=== PATIENT | female | born 1945 | race Caucasian/White ===

== ENCOUNTER → 2020-03-29 16:50 | Outpatient (CLI) | payer MEDICARE, OTHER, SELFPAY | PROVIDERS: PCP Internal Medicine; Referring Provider Internal Medicine; Visit Provider Internal Medicine | DX: Z20.828 Contact with and (suspected) exposure to other viral communicable diseases (principal) | CPT/HCPCS: 87635; C9803; U0003 ==

== ENCOUNTER 2023-10-28 10:37 | Emergency (ER) | payer MEDICARE, OTHER, SELFPAY ==
[2023-10-28 10:39] VITALS: BP 120/53; PULSE 54; RESP 16; TEMP 35.2; O2SAT 96; BMI 39.0
--- NOTE | 2023-10-28 11:07 | EKG12_ITS ---
Test Reason : Blood Pressure : / mmHG Vent. Rate : 053 BPM Atrial Rate : 053 BPM P-R Int : 246 ms QRS Dur : 140 ms QT Int : 510 ms P-R-T Axes : 058 268 078 degrees QTc Int : 478 ms Sinus bradycardia with 1st degree A-V block Right bundle branch block Septal infarct , age undetermined Abnormal ECG Confirmed by Monster Díaz ([id number]), index editor QI FINE ([id number]) on 10/29/2023 10:19:23 AM Referred By: Confirmed By:Monster Díaz
--- NOTE | 2023-10-28 11:08 | EDS_ITS ---
HPI History of Present Illness Chief Complaint: Dizziness Informant: patient and spouse/S.O. Narrative Narrative: 78-year-old female presenting to the emergency room with dizziness and reported low blood pressure. Patient seems exhausted to have to tell me the story of why she is here as she is reportedly already told just a couple times this morning. She states that she went to her doctor's office for follow-up from hospitalization. She states that she has been having dizziness (when asked to describe dizziness she states lightheadedness and dizziness stuff like that). When she went to the nurse practitioner today she had hypotension into the 80s and ambulance was called who brought her to the emergency department. She states that she was recently hospitalized at [facility] for heart attack like symptoms. [facility] Medical History (Updated 10/28/23 @ 13:[address] Alexandro Fitzgerald DO) Chronic idiopathic thrombocytopenia Obstructive sleep apnea COPD (chronic obstructive pulmonary disease) Diabetes SVT (supraventricular tachycardia) Hyperlipidemia Hypertension CAD (coronary artery disease) Allergy/AdvReac Type Severity Reaction Status Date / Time cefuroxime Allergy Mild Itching Verified 10/28/23 10:50 clotrimazole Allergy Mild Itching Verified 10/28/23 10:50 codeine Allergy Mild Vomiting Verified 10/28/23 10:50 erythromycin base Allergy Mild SOB Verified 10/28/23 10:50 insulin aspart (From Novolog Allergy Mild Rash Verified 10/28/23 10:50 U-100 Insulin aspart) insulin glargine (From Allergy Mild NEEDS Verified 10/28/23 10:50 Lantus U-100 Insulin) FOLLOW-UP mercury (elemental) Allergy Mild Itching Verified 10/28/23 10:50 metformin Allergy Mild NEEDS Verified 10/28/23 10:50 FOLLOW-UP benzethonium chloride (From AdvReac Mild INTOLERANCE Verified 10/28/23 10:50 Lanacane [place]) benzocaine (From Lanacane AdvReac Mild INTOLERANCE Verified 10/28/23 10:50 [place]) Social History Smoking Status: Never smoker ROS ROS ED ROS Narrative Lightheadedness Constitutional Constitutional ED: Denies chills or weight loss Eyes Eyes: Denies change in vision or diplopia ENT ENT ED: Denies ear pain, rhinorrhea or sore throat Cardiovascular Cardiovascular: Denies chest pain, orthopnea, palpitations or racing heartbeat Respiratory/Chest Respiratory/Chest: Denies cough, dyspnea or orthopnea Gastrointestinal Gastrointestinal: Denies abdominal pain, diarrhea, nausea or vomiting Genitourinary Genitourinary ED: Denies dysuria, hematuria or urinary frequency Musculoskeletal Musculoskeletal: Denies arthralgias or myalgias Integumentary Denies abscess or rash Neurologic Neurologic: Reports headache(s) and other Details: Headache frontal left-sided ; Denies weakness Psychiatric Psychiatric: Denies anxiety, depression, suicidal ideation or suicidal thoughts Endocrine Endocrinology: Denies polydipsia, polyphagia or polyuria Allergic/Immunologic Allergic/Immunologic ED: Denies mouth swelling, tongue swelling or urticaria EXAM Physical Exam Const Vital Signs: 10/28/23 10:39 10/28/23 10:45 10/28/23 12:04 Temperature 95.4 F L Temperature Source Oral Pulse Rate 54 L Pulse Rate [Lying] 54 L Pulse Rate [Sitting (for 1 minute prior to obtaining)] 56 L Pulse Rate [Standing (for 1 minute prior to obtaining)] 60 Respiratory Rate 16 Respiratory Effort Normal Non-Labored Respiratory Pattern Normal Blood Pressure 120/53 L Blood Pressure [Lying] 127/50 H Blood Pressure [Sitting (for 1 minute prior to obtaining)] 129/59 H Blood Pressure [Standing (for 1 minute prior to obtaining)] 139/64 H Blood Pressure Mean 75 Blood Pressure Mean [Lying] 75 Blood Pressure Mean [Sitting (for 1 minute prior to obtaining)] 82 Blood Pressure Mean [Standing (for 1 minute prior to obtaining)] 89 Pulse Ox 96 Oxygen Delivery Method Room Air 10/28/23 12:38 Temperature Temperature Source Pulse Rate 57 L Pulse Rate [Lying] Pulse Rate [Sitting (for 1 minute prior to obtaining)] Pulse Rate [Standing (for 1 minute prior to obtaining)] Respiratory Rate 15 Respiratory Effort Respiratory Pattern Blood Pressure 121/53 H Blood Pressure [Lying] Blood Pressure [Sitting (for 1 minute prior to obtaining)] Blood Pressure [Standing (for 1 minute prior to obtaining)] Blood Pressure Mean 75 Blood Pressure Mean [Lying] Blood Pressure Mean [Sitting (for 1 minute prior to obtaining)] Blood Pressure Mean [Standing (for 1 minute prior to obtaining)] Pulse Ox 96 Oxygen Delivery Method Room Air Positive well nourished and well developed General Appearance ED: well developed HEENT Reports normocephalic, head/scalp atraumatic and moist mucous membranes Eyes PERRL and EOMs intact bilaterally Neck no lymphadenopathy, supple and no JVD Resp normal respiratory effort and clear to auscultation bilaterally Cardio regular rate, regular rhythm and no murmurs GI normal to inspection, nondistended, normoactive bowel sounds and non-tender Palpation: soft Back/Spine no CVA tenderness and normal ROM Extremity normal to inspection General Extremety ED: Negative for edema General Extremity: Negative for edema Neuro oriented x3 and CN's II-XII intact bilaterally Sensorium / Orientation: alert Motor Exam: strength 5/5 throughout Psych mental status grossly normal Mood & Affect: Negative for depressed or tearful Skin no rashes or lesions noted and no wounds MDM MDM MDM Narrative Medical decision making narrative: Differential diagnosis includes but not limited to acute coronary syndrome dehydration electrolyte abnormalities stroke PRESS medication reaction cardiac dysrhythmias anemia POTS infections malingering Patient's was able to get some paperwork from her hospitalization. It appears that her troponin was 27 and 23 on 10/23/1967 [id number] on [birth year]23[birth year]1941 and 521. These are troponin T high-sensitivity. Heart is troponin I high-sensitivity and is currently 57. EKG shows a sinus bradycardia with a first-degree AV block with right bundle branch block. Patient had a left heart catheterization August 25, 2023 showed left main with mild luminal irregularities, mild diffuse LAD disease with patent stent in the mid LAD, mild diffuse circumflex disease, 40% proximal circumflex, 60% second obtuse marginal lesion, moderate diffuse RCA with mild to moderate narrowing no interventions were given. 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 Today white count 5.0 hemoglobin of 12 platelet count is 139. My independent interpretation of the chest x-ray is no acute process. Patient has been normotensive on the monitor. Orthostatics are negative. 3 hours that she has been here have not seen any cardiac dysrhythmia or hypotension. Because of her symptomology I obtained a CT of the brain which was also negative for acute findings. I explained to the patient that today's labs look very similar to the ones at [facility] and her objective findings otherwise been negative. Her subjective complaints of lightheadedness and frontal headache I am not seeing anything I can intervene upon. Patient tells me you need to go think outside the box. I informed her that she has had a 3-hour emergency department stay with an appropriate workup I am not finding anything obvious. She wonders about her heart blockages. I can make no [employer] that her air launch weapons technician is in fact well aware of her August heart catheterization as it is in their notes and they did not feel that it was something they can intervene upon at this time. She states I know. Patient states that she cannot just keep going in and out of the hospitals. Unfortunately at this time I do not see anything that I can admit her into the hospital for. Also I have for some subjective complaints. At this point patient will be discharged home to follow-up with her doctors. Certainly if she has new findings/complaints that may change and help us to clue us in on something but I am not History & Record Review Discussion w/independent historian: EMS personnel, Patient and Family Lab Data Attestation: I reviewed the patient's lab results. Labs: Laboratory Results - last 24 hr 10/28/23 11:20 WBC 5.0 RBC 3.84 L Hgb 12.0 Hct 38.1 MCV 99.2 H MCH 31.3 MCHC 31.5 L RDW Std Deviation 50.8 H RDW Coeff of Christophe 14.3 Plt Count 139 L MPV 9.7 Immature Gran % (Auto) 0.800 Neut % (Auto) 67.5 Lymph % (Auto) 21.4 [place] % (Auto) 7.7 Eos % (Auto) 1.6 Baso % (Auto) 1.0 Absolute Neuts (auto) 3.4 Absolute Lymphs (auto) 1.08 Nucleated RBC % 0 Sodium 133 L Potassium 3.8 Chloride 101 Carbon Dioxide 23.0 Anion Gap 9 BUN 39 H Creatinine 1.35 H Estim Creat Clear Calc 32.54 Est GFR (MDRD) Af Amer 49 L Est GFR (MDRD) Non-Af 40 L BUN/Creatinine Ratio 28.9 H Glucose 245 H Calcium 9.1 Troponin I High Sens 57 H Radiography Diagnostic Testing: Clinical Impression(s) from Imaging Studies Chest X-Ray 10/28/23 11:30 IMPRESSION: No acute cardiopulmonary disease. Electronically Signed: Kolby Chun MD at 12:00 EDT , Brain CT 10/28/23 12:28 IMPRESSION: 1. Chronic ischemic changes of the brain. Electronically Signed: Jonathan Patrick MD at 13:23 EDT , EKG Initial EKG: Attestation: I personally reviewed and interpreted this EKG as follows: Comments: Sinus bradycardia with a first-degree AV block and a ventricular rate of 53 bpm. Discharge Plan Triage Chief Complaint: Dizziness ED Provider: Alexandro Fitzgerald Dx/Rx/DC Orders Clinical Impression: Light-headedness, Headache, CAD (coronary artery disease) Instructions: ED Dizziness, Uncertain Cause Primary Care Provider: Edilma Humphrey Referrals: Edilma Humphrey MD [Primary Care Provider] - As soon as possible Print Language: Czech Disposition Disposition: Home, Self Care
--- NOTE | 2023-10-28 11:30 | RAD_ITS ---
EXAM: XR CHEST, 1 VIEW CLINICAL INDICATION: dizziness TECHNIQUE: Frontal view of the chest. COMPARISON: No relevant prior studies available. FINDINGS: LUNGS AND PLEURAL SPACES: Normal. No consolidation or edema. No pneumothorax. No effusion. HEART: Normal heart size. MEDIASTINUM: No mediastinal or hilar mass. BONES/JOINTS: No acute abnormality. RAD/Chest 1 View (Portable) IMPRESSION: No acute cardiopulmonary disease. Electronically Signed: Kolby Chun MD at 12:00 EDT ,
[2023-10-28 11:33] LABS: Absolute Lymphocyte Count 1.08 X10^3/uL (0.83-4.51); Absolute Neutrophil Count 3.4 X10^3/uL (2.0-7.7); Basophil# 0.05 X10^3/uL; Eosinophil# 0.08 X10^3/uL; Eosinophils% 1.6 % (0-5); Hematocrit 38.1 % (37-47); Lymphocyte # 1.08 X10^3/ul (0.83-4.51); Lymphocyte % 21.4 % (19-41); Mean Corp Hgb Conc 31.5 g/dL (32-36); Mean Corpuscular Hgb 31.3 pg (27.0-32.0); Mean Corpuscular Volume 99.2 fL (81-99); Mean Platelet Vol. 9.7 fl (6.2-12.0); Monocyte# 0.39 X10^3/uL; Monocyte% 7.7 % (0-10); NRBC Flagged by Analyzer 0 % (0-5); Neutrophil % 67.5 % (47-70); Platelet Count 139 K/mm3 (150-450); RBC Distribution Width CV 14.3 % (11.6-14.6); RBC Distribution Width SD 50.8 fl (35.1-43.9); Red Blood Count 3.84 M/mm3 (4.2-5.4)
[2023-10-28 11:52] LABS: Anion Gap 9 (5-15); BUN 39 mg/dL (7-18); BUN/Creat Ratio 28.9 RATIO (10-20); Calcium,Total 9.1 mg/dL (8.5-10.1); Chloride 101 mmol/L (98-107); Creatinine, Serum 1.35 mg/dL (0.55-1.02); EST Glomerular Filtration Rate 40 mL/min (>60); Est Glom Filt Rate - Afr Amer 49 mL/min (>60); Estimated Creatinine Clearance 32.54 ml/min; Glucose 245 mg/dL (74-106); Potassium 3.8 mmol/L (3.5-5.1); Sodium Level 133 mmol/L (136-145); Troponin-I HS 57 pg/mL (3.0-54.0)
[2023-10-28 12:04] VITALS: BP 127/50; BP 129/59; BP 139/64; PULSE 54; PULSE 56; PULSE 60
--- NOTE | 2023-10-28 12:28 | CT_ITS ---
STUDY: CT BRAIN WITHOUT CONTRAST REASON FOR EXAM: Female, 78 years old. EPPERSON, DIZZINESS, HYPOTENSIVE RADIATION DOSAGE (If Supplied By Facility): CTDIvol = ( 44.99 ) mGy, DLP = ( 728.62 ) mGycm TECHNIQUE: Transaxial CT imaging of the brain was performed without administration of intravenous contrast material. Individualized dose optimization techniques were used for this CT. COMPARISON: None. FINDINGS: Normal soft tissue structures. Normal calvarium. Normal size ventricles and extra-axial spaces for the patient''s age. There are moderate areas of decreased attenuation within the white matter tracts of the supratentorial brain, consistent with microvascular disease changes. Normal basal ganglia and thalami. Normal brainstem. Normal cerebellum. There is no intracranial hemorrhage. There are no findings of an acute ischemic infarction. Moderate mucus opacification is seen in the posterior left ethmoid air cells. There is severe mucous opacification in the left sphenoid sinus. CT/Brain/Head without Contrast IMPRESSION: 1. Chronic ischemic changes of the brain. Electronically Signed: Jonathan Patrick MD at 13:23 EDT ,
[2023-10-28 12:38] VITALS: BP 121/53; PULSE 57; RESP 15; O2SAT 96
[2023-10-28 13:54] VITALS: BP 125/51; PULSE 59; RESP 14; TEMP 37.2; O2SAT 95
== END 2023-10-28 14:02 | disposition home or self-care (01) ==
PROVIDERS: Emergency Provider Emergency Medicine; PCP Internal Medicine; Visit Provider Emergency Medicine
DX: R42 Dizziness and giddiness (principal); J44.9 Chronic obstructive pulmonary disease, unspecified; E11.9 Type 2 diabetes mellitus without complications; Z79.4 Long term (current) use of insulin; I25.10 Atherosclerotic heart disease of native coronary artery without angina pectoris; R51.9 Headache, unspecified; E78.5 Hyperlipidemia, unspecified; I10 Essential (primary) hypertension; Z79.84 Long term (current) use of oral hypoglycemic drugs
CPT/HCPCS: 70450; 71045; 80048; 84484; 85025; 93005; 99285; A4216